=== PATIENT | female | born 1955 | race Two or more races ===

== ENCOUNTER 2016-09-18 05:34 | Inpatient (IN) | payer MEDICARE, MEDICAID ==
[~2016-09-18] VITALS: Ht 167.6 cm; Wt 60.6 kg
[2016-09-18 06:13] LABS: Urine Bilirubin Negative (Negative); Urine Blood TRACE /uL (Negative); Urine Color Yellow (Yellow); Urine Glucose Normal (Normal); Urine Ketone Negative (Negative); Urine Nitrite Negative (Negative); Urine RBC 2 /hpf (0 - 4); Urine Squamous Epithelial Cell MOD /hpf (<5)
[2016-09-18 06:39] LABS: Basophils # (auto) 0.1 uL; Basophils % (auto) 0.8 % (0.0-2.0); Eosinophils # (auto) 0.1 uL; Eosinophils % (auto) 1.6 % (0.0-7.0); Hematocrit 40.2 % (36.0-46.0); Hemoglobin 12.9 g/dL (12.2-16.2); Lymphocytes % (auto) 11.7 % (10.0-50.0); Mean Corpuscular Hemoglobin 30.8 pg (28.0-32.0); Mean Corpuscular Hgb Conc. 32.1 g/dL (32.0-36.0); Mean Corpuscular Volume 95.8 fL (80.0-100.0); Mean Platelet Volume 9.1 fL (7.4-10.4); Monocytes # (auto) 0.9 uL; Monocytes % (auto) 11.1 % (0.0-12.0); Neutrophils # (auto) 6.2 uL; Neutrophils % (auto) 74.8 % (37.0-80.0); Platelet Count (auto) 163 10^3/uL (140-450); Red Cell Distribution Width 14.3 % (11.6-16.0); White Blood Cell 8.3 10^3/uL (4.4-10.8)
[2016-09-18 06:40] LABS: Partial Thromboplastin Time 30.3 sec (22.64-33.71)
[2016-09-18 06:44] LABS: INR 1.17 (0.9-1.15)
[2016-09-18 06:55] LABS: BUN/Creatinine Ratio 8.9; Bilirubin, Total 1.3 mg/dL (0.2-1.0); Calcium 7.2 mg/dL (8.5-10.1); Magnesium 1.9 mg/dL (1.6-2.6); Potassium 3.3 mmol/L (3.5-5.1)
[2016-09-18] MEDS ORDERED: SODIUM CHLORIDE 0.9% 500 ML IVB ONE (09:59)
[2016-09-18] MEDS ORDERED: PANTOPRAZOLE SODIUM 40 MG/10 ML VIAL IV STA (09:59)
[2016-09-18] MEDS: CINACALCET HYDROCHLORIDE 30 MG TAB PO SCH (10:00)
[2016-09-18] MEDS ORDERED: ONDANSETRON HCL 4 MG/2 ML VIAL IV ONE (10:00)
[2016-09-18] MEDS ORDERED: DILTIAZEM HCL 25 MG/5 ML VIAL IV ONE (10:15)
[2016-09-18] MEDS ORDERED: ONDANSETRON HCL 4 MG/2 ML VIAL IV PRN (14:15)
[2016-09-18] MEDS ORDERED: ACETAMINOPHEN 325 MG TAB PO PRN (14:15)
[2016-09-18] MEDS ORDERED: POTASSIUM CHLORIDE 8 MEQ TAB PO ONE (14:15)
[2016-09-18] MEDS ORDERED: NITROGLYCERIN 0.4 MG SL TAB SL PRN (14:15)
[2016-09-18] MEDS ORDERED: PANTOPRAZOLE SODIUM 40 MG/10 ML VIAL IV ONE (14:15)
[2016-09-18] MEDS ORDERED: FUROSEMIDE 40 MG TAB PO ONE ×2 (14:15→14:30)
[2016-09-18] MEDS ORDERED: amLODIPine BESYLATE 5 MG TAB PO ONE (14:15)
[2016-09-18] MEDS ORDERED: HYDROcodone-ACET 5/325MG TAB PO PRN (14:15)
[2016-09-18] MEDS ORDERED: MORPHINE SULF INJ 2 MG/ML SYRINGE 1ML IV PRN ×2 (14:15)
[2016-09-18] MEDS ORDERED: DEXTROSE (50%) 50ML SYRG IV PRN (14:15)
[2016-09-18] MEDS ORDERED: cefTRIAXone 1GM/50ML D5W 50 ML IV ONE (14:15)
[2016-09-18] MEDS ORDERED: TEMAZEPAM 15 MG CAP PO PRN (14:15)
[2016-09-18] MEDS ORDERED: FAMOTIDINE 20 MG TAB PO ONE (14:30)
[2016-09-18] MEDS ORDERED: CALCITRIOL 0.25 MCG CAP PO ONE (14:30)
[2016-09-18] MEDS ORDERED: MULTIPLE VITAMIN TAB PO ONE (14:30)
[2016-09-18] MEDS: InsuLIN REG 1unit/0.01ml Soln (100units/ml) SC SCH ×2 (17:00→21:38)
[2016-09-18] MEDS: ACCU-CHEK COMFORT CURVE STRIP VI SCH ×2 (17:35→21:37)
[2016-09-18] MEDS: Boost Glucose Control 8 Ounces PO SCH (17:36)
[2016-09-18] MEDS: SODIUM CHLOR 0.9% PF (SALINE LOCK) 10ML VIAL IV SCH (21:37)
[2016-09-18] MEDS: PANTOPRAZOLE SODIUM 40 MG/10 ML VIAL IV SCH (21:37)
[2016-09-18 22:00] VITALS: BP 119/81
[2016-09-18] MEDS ORDERED: FAMOTIDINE 20 MG TAB PO SCH (22:00)
[2016-09-19] MEDS ORDERED: FURO40TA4 PO (00:41)
[2016-09-19] MEDS ORDERED: CALC0.5C PO (00:41)
[2016-09-19] MEDS ORDERED: ALBU1AER4 IN (00:41)
[2016-09-19] MEDS ORDERED: APIX2.5T PO (00:41)
[2016-09-19] MEDS ORDERED: CINA30TA2 PO (00:41)
[2016-09-19] MEDS ORDERED: AMLO5TAB2 PO (00:41)
[2016-09-19] MEDS ORDERED: ACETAMINOPHEN 325 MG TAB PO PRN (04:45)
[2016-09-19 05:00] VITALS: BP 133/78
[2016-09-19 05:36] LABS: Albumin 2.7 g/dL (3.4-5.0); Calcium 6.6 mg/dL (8.5-10.1); Potassium 3.4 mmol/L (3.5-5.1)
[2016-09-19 05:40] LABS: BUN/Creatinine Ratio 9.1
[2016-09-19 05:42] LABS: Bilirubin, Total 1.2 mg/dL (0.2-1.0); Total Protein 6.4 g/dL (6.4-8.2)
[2016-09-19 05:57] LABS: Basophils # (auto) 0 uL; Basophils % (auto) 0.4 % (0.0-2.0); Eosinophils # (auto) 0.1 uL; Eosinophils % (auto) 0.7 % (0.0-7.0); Hematocrit 36.8 % (36.0-46.0); Hemoglobin 12.2 g/dL (12.2-16.2); Lymphocytes # (auto) 1.2 uL; Mean Corpuscular Hemoglobin 31.7 pg (28.0-32.0); Mean Corpuscular Hgb Conc. 33.2 g/dL (32.0-36.0); Mean Corpuscular Volume 95.5 fL (80.0-100.0); Mean Platelet Volume 9.2 fL (7.4-10.4); Monocytes # (auto) 0.8 uL; Monocytes % (auto) 11.5 % (0.0-12.0); Neutrophils # (auto) 5.2 uL; Neutrophils % (auto) 70.4 % (37.0-80.0); Platelet Count (auto) 135 10^3/uL (140-450); Red Cell Distribution Width 13.2 % (11.6-16.0); White Blood Cell 7.3 10^3/uL (4.4-10.8)
[2016-09-19] MEDS: SODIUM CHLOR 0.9% PF (SALINE LOCK) 10ML VIAL IV SCH ×3 (06:17→22:28)
[2016-09-19] MEDS: ACCU-CHEK COMFORT CURVE STRIP VI SCH ×2 (06:17→11:53)
[2016-09-19] MEDS: InsuLIN REG 1unit/0.01ml Soln (100units/ml) SC SCH ×2 (06:17→11:30)
[2016-09-19] MEDS: Boost Glucose Control 8 Ounces PO SCH ×3 (08:00→17:02)
[2016-09-19] MEDS: PANTOPRAZOLE SODIUM 40 MG/10 ML VIAL IV SCH (09:21)
[2016-09-19] MEDS: cefTRIAXone 1GM/50ML D5W 50 ML IV SCH (09:21)
[2016-09-19] MEDS: CINACALCET HYDROCHLORIDE 30 MG TAB PO SCH (09:22)
[2016-09-19] MEDS: CALCITRIOL 0.25 MCG CAP PO SCH (09:22)
[2016-09-19] MEDS: MULTIPLE VITAMIN TAB PO SCH (09:22)
[2016-09-19] MEDS: amLODIPine BESYLATE 5 MG TAB PO SCH (09:23)
[2016-09-19] MEDS: FUROSEMIDE 40 MG TAB PO SCH (09:23)
[2016-09-19 09:24] VITALS: BP 113/70
[2016-09-19] MEDS ORDERED: FAMOTIDINE 20 MG TAB PO SCH (10:00)
[2016-09-19 12:00] VITALS: BP 118/59
[2016-09-19] MEDS ORDERED: POTASSIUM CHL 20 Meq TABLET PO ONE (15:15)
[2016-09-19 16:00] VITALS: BP 120/75
[2016-09-19 20:52] VITALS: BP 110/73
[2016-09-20 04:56] VITALS: BP 116/78
[2016-09-20] MEDS: SODIUM CHLOR 0.9% PF (SALINE LOCK) 10ML VIAL IV SCH ×2 (05:39→14:00)
[2016-09-20 06:31] LABS: Basophils # (auto) 0 uL; Basophils % (auto) 0.5 % (0.0-2.0); Eosinophils # (auto) 0.2 uL; Eosinophils % (auto) 3.8 % (0.0-7.0); Hematocrit 38.1 % (36.0-46.0); Hemoglobin 12.2 g/dL (12.2-16.2); Lymphocytes # (auto) 1.4 uL; Lymphocytes % (auto) 24.3 % (10.0-50.0); Mean Corpuscular Hemoglobin 30.6 pg (28.0-32.0); Mean Corpuscular Hgb Conc. 32.1 g/dL (32.0-36.0); Mean Corpuscular Volume 95.6 fL (80.0-100.0); Mean Platelet Volume 9.2 fL (7.4-10.4); Monocytes # (auto) 0.7 uL; Monocytes % (auto) 12.4 % (0.0-12.0); Neutrophils # (auto) 3.4 uL; Platelet Count (auto) 146 10^3/uL (140-450); Red Cell Distribution Width 14.1 % (11.6-16.0); White Blood Cell 5.8 10^3/uL (4.4-10.8)
[2016-09-20 06:54] LABS: BUN/Creatinine Ratio 8.5; Calcium 6.4 mg/dL (8.5-10.1); Magnesium 1.8 mg/dL (1.6-2.6); Potassium 4.1 mmol/L (3.5-5.1)
[2016-09-20] MEDS: Boost Glucose Control 8 Ounces PO SCH ×2 (08:00→12:00)
[2016-09-20 09:00] VITALS: BP 115/77
[2016-09-20] MEDS: cefTRIAXone 1GM/50ML D5W 50 ML IV SCH (09:56)
[2016-09-20] MEDS: CINACALCET HYDROCHLORIDE 30 MG TAB PO SCH (09:56)
[2016-09-20] MEDS: CALCITRIOL 0.25 MCG CAP PO SCH (09:56)
[2016-09-20] MEDS: MULTIPLE VITAMIN TAB PO SCH (09:56)
[2016-09-20] MEDS: amLODIPine BESYLATE 5 MG TAB PO SCH (09:57)
[2016-09-20] MEDS: FUROSEMIDE 40 MG TAB PO SCH (09:57)
[2016-09-20] MEDS ORDERED: PANTOPRAZOLE 40 MG TAB PO SCH (10:00)
[2016-09-20] MEDS ORDERED: PANT40T PO (12:22)
[2016-09-20] MEDS ORDERED: LEVO250T45 PO (12:22)
[2016-09-20] MEDS ORDERED: METR500T PO (12:22)
[2016-09-20 13:00] VITALS: BP 113/80
[2016-09-20 15:17] VITALS: BP 115/77
== END 2016-09-20 16:31 | disposition home or self-care (01) | DRG 871 ==
LOC: ER 05:38 → TELE 05:39 → TELE-E-ADS 15:25 → TELE-EAST 16:39
PROVIDERS: ADMIT Internal Medicine; ATTEND Internal Medicine
DX: A41.9 Sepsis, unspecified organism (principal); J81.0 Acute pulmonary edema; N18.6 End stage renal disease; K62.5 Hemorrhage of anus and rectum; N39.0 Urinary tract infection, site not specified; E44.1 Mild protein-calorie malnutrition; I12.0 Hypertensive chronic kidney disease with stage 5 chronic kidney disease or end stage renal disease; I48.92 Unspecified atrial flutter; J81.1 Chronic pulmonary edema; N25.81 Secondary hyperparathyroidism of renal origin; D68.59 Other primary thrombophilia; E11.22 Type 2 diabetes mellitus with diabetic chronic kidney disease; I25.10 Atherosclerotic heart disease of native coronary artery without angina pectoris; I48.0 Paroxysmal atrial fibrillation; K52.9 Noninfective gastroenteritis and colitis, unspecified; Z82.49 Family history of ischemic heart disease and other diseases of the circulatory system; Z95.1 Presence of aortocoronary bypass graft; Z99.2 Dependence on renal dialysis; Z90.710 Acquired absence of both cervix and uterus
CPT/HCPCS: 36415; 74176; 80048; 80053; 81001; 82962; 83036; 83690; 83735; 85025; 85610; 85730; 86850; 86900; 86901; 87040; 87086; 87205; 93005; 96374; 96375; 99291; C9113; J0696; J2405